=== PATIENT | female | born 1960 | race Caucasian/White ===

== ENCOUNTER 2019-09-17 21:05 | Emergency (ER) | payer BC, MEDICAID ==
[~2019-09-17] VITALS: Ht 160 cm; Wt 63.5 kg
[2019-09-17 21:05] VITALS: BP_SYST 112
[2019-09-17] MEDS ORDERED: SYN75 PO (21:21)
[2019-09-17] MEDS ORDERED: LISI-600 PO (21:21)
[2019-09-17] MEDS ORDERED: WELSR150 PO (21:22)
[2019-09-17] MEDS ORDERED: CARI350T27 PO (21:22)
[2019-09-17] MEDS ORDERED: SUCR1TAB78 PO (21:22)
[2019-09-17] MEDS ORDERED: GABA-529 PO (21:22)
[2019-09-17] MEDS ORDERED: PRO40 PO (21:22)
[2019-09-17] MEDS ORDERED: NACL 0.9% 1,000 ML IV ONE (21:44)
[2019-09-17 23:00] LABS: BASOPHILS # (AUTO) 0.2 K/uL (0.0-0.2); BASOPHILS % (AUTO) 1.6 % (0.0-2.0); EOSINOPHILS # (AUTO) 0.1 K/uL (0.0-0.4); EOSINOPHILS % (AUTO) 0.6 % (0.0-4.0); HEMATOCRIT 34.1 % (36-48); HEMOGLOBIN 11.4 g/dL (12.0-16.0); LYMPHOCYTES # (AUTO) 0.3 K/uL (1.0-5.5); LYMPHOCYTES % (AUTO) 3.1 % (20.5-51.5); MEAN CORPUSCULAR HEMOGLOBIN 33 pg (27-31); MEAN CORPUSCULAR HGB CONC 34 % (32-36); MEAN CORPUSCULAR VOLUME 99 fL (79.0-98.0); MONOCYTES # (AUTO) 0.7 K/uL (0.0-1.0); MONOCYTES % (AUTO) 6.8 % (1.7-9.3); NEUTROPHILS # (AUTO) 8.6 K/uL (1.8-7.7); NEUTROPHILS % (AUTO) 87.9 % (40.0-70.0); PLATELET COUNT (AUTO) 218 K/uL (130-430); RED BLOOD CELL COUNT(AUTO) 3.44 MIL/uL (4.2-6.2); RED CELL DISTRIBUTION WIDTH 13.5 % (9.0-15.0); WHITE BLOOD COUNT (AUTO) 9.8 K/uL (4.8-10.8)
[2019-09-17 23:04] LABS: INR 0.9 (0.8-1.2); PROTHROMBIN TIME 9.4 SECS (9.5-12.5)
[2019-09-17 23:12] LABS: ANION GAP 5 (5-15); CALCIUM 8.2 mg/dL (8.4-11.0); CHLORIDE 102 mmol/L (98-107); CREATININE 0.62 mg/dL (0.55-1.30); GLUCOSE 125 mg/dL (70-99); POTASSIUM 3.8 mmol/L (3.5-5.1); SODIUM SERUM 131 mmol/L (136-145); UREA NITROGEN, BLOOD 20 mg/dL (8-21)
[2019-09-17 23:13] LABS: GFR AFRICAN AMERICAN 128 mL/min (>90)
[2019-09-17 23:16] LABS: ALANINE AMINOTRANSFERASE 239 U/L (12-78); ALBUMIN 3.3 g/dL (3.4-4.8); ASPARTATE AMINOTRANSFERASE 203 U/L (10-37); TOTAL BILIRUBIN 0.3 mg/dL (0.0-1.0)
[2019-09-17 23:18] LABS: ALCOHOL, BLOOD < 3 mg/dL (<10)
[2019-09-17 23:22] LABS: BILIRUBIN,URINE NEGATIVE (NEGATIVE); BLOOD, URINE NEGATIVE (NEGATIVE); CLARITY/URINE SL CLOUDY (CLEAR); COLOR,URINE YELLOW (YELLOW); GLUCOSE,URINE NEGATIVE (NEGATIVE); KETONES,URINE NEGATIVE (NEGATIVE); LEUKOCYTE ESTERASE ,URINE 1+ (NEGATIVE); NITRITE, URINE NEGATIVE (NEGATIVE); PROTEIN URINE TRACE (NEGATIVE); UROBILINOGEN,URINE 0.2 (0.2-1.0)
[2019-09-17 23:46] LABS: BARBITURATE, URINE NEGATIVE (NEG <=200); BENZODIAZEPINE, URINE NEGATIVE (NEG <=150); CANNABINOID, URINE NEGATIVE (NEG <=50); COCAINE, URINE NEGATIVE (NEG <=150); METHAMPHETAMINES SCREEN,URINE POSITIVE (NEG <=500); OPIATE, URINE NEGATIVE (NEG <=100); PHENCYCLIDINE SCREEN,URINE NEGATIVE (NEG <=25); UR TRICYCLIC ANTIDEPRESSANTS NEGATIVE (NEG <=300); URINE AMPHETAMINE NEGATIVE (NEG <=500); URINE METHADONE NEGATIVE (NEG <=200); URINE OXYCODONE SCREEN NEGATIVE (NEG <=100); URINE PROPOXYPHENE SCREEN NEGATIVE (NEG <=300)
[2019-09-17 23:47] LABS: BACTERIA,URINE MODERATE /HPF (None Seen); RBC,URINE 0-3 /HPF (0-3)
[2019-09-18 00:30] VITALS: BP_SYST 110
[2019-09-18] MEDS ORDERED: NITROFURANTOIN MONOHYD/M-CRYST 100 MG CAPSULE PO ONE ×2 (00:32)
== END 2019-09-18 00:30 | disposition home or self-care (01) ==
LOC: SED 21:05
DX: R55 Syncope and collapse (principal); N39.0 Urinary tract infection, site not specified; R79.89 Other specified abnormal findings of blood chemistry; F15.10 Other stimulant abuse, uncomplicated; E07.9 Disorder of thyroid, unspecified; K21.9 Gastro-esophageal reflux disease without esophagitis; I10 Essential (primary) hypertension; Z79.899 Other long term (current) drug therapy; Z88.0 Allergy status to penicillin
CPT/HCPCS: 36415; 71045; 80053; 80307; 81000; 83605; 84484; 85025; 85610; 85730; 87040; 87086; 87186; 93005; 96360; 99285; G0482; J7030

== ENCOUNTER 2020-03-27 23:51 | Inpatient (IN) | payer BC, SELFPAY ==
[~2020-03-27] VITALS: Ht 160 cm; Wt 67.1 kg
[2020-03-27 23:51] VITALS: BP_SYST 82
[~2020-03-27 23:51] MED LIST: CARI350T27 PO; GABA-529 PO; LISI-600 PO; PRO40 PO; SUCR1TAB78 PO; SYN75 PO; WELSR150 PO
--- NOTE | 2020-03-27 23:51 | NUR ---
Patient to ER bed 06 to gown for evaluation. Side rails up.
--- NOTE | 2020-03-27 23:55 | NUR ---
PATIENT BROUGHT IN ALS FROM HOME COMPLAINING OF ACUTE CONSTANT SHARP RIGHT SIDED ABDOMINAL PAIN NON RADIATING TODAY WITH CONSTIPATION X 10 DAYS. PATIENT REPORTS THAT SHE WAS SEEN AT [facility] ON TUESDAY FOR ABDOMINAL AND REPORTS THAT SHE WAS DISCHARGED. PAIN 03/29. NO OTHER COMPLAINTS/INJURIES PER PATIENT OR NOTED. WILL CONTINUE TO MONITOR.
--- NOTE | 2020-03-27 23:59 | NUR ---
Medication reconciliation completed with information provided by PT. Any prior medication reconciliation on file was reviewed and corrected.
--- NOTE | 2020-03-28 00:01 | NUR ---
# 20 gauge angiocath placed to LAC. Use of asceptic technique. Opsite placed over site. Blood return noted. Blood AND CULTURES for lab drawn from site. Flushed with 10 cc of normal saline. No evidence of infiltration noted. Patient tolerated well.
--- NOTE | 2020-03-28 00:07 | NUR ---
ER DR. STEPHENSON AT THE BEDSIDE EVALUATING PT
[2020-03-28] MEDS ORDERED: NACL 0.9% 1,000 ML IV ONE ×2 (00:14→01:00)
[2020-03-28] MEDS ORDERED: ONDANSETRON HCL 4 MG/2 ML VIAL IVP ONE ×2 (00:15→04:49)
[2020-03-28] MEDS ORDERED: KETOROLAC TROMETHAMINE 30 MG VIAL IVP ONE (00:15)
--- NOTE | 2020-03-28 00:24 | NUR ---
PATIENT MEDICATED PER MD ORDERS. PATIENT TOLERATED WELL. WILL CONTINUE TO MONITOR
--- NOTE | 2020-03-28 00:34 | NUR ---
# 16 FR In and Out catheter with use of sterile technique. Immediate return of 70ml CLEAR YELLOW urine noted. Urine sample collected and sent to lab. Pt tolerated procedure WELL Patient unable to toilet self.
[2020-03-28 00:35] LABS: CALCIUM 8.9 mg/dL (8.4-11.0); CREATININE 1.72 mg/dL (0.55-1.30)
[2020-03-28 00:37] LABS: PROTHROMBIN TIME 10.1 SECS (9.5-12.5)
[2020-03-28 00:41] LABS: ALBUMIN 3.6 g/dL (3.4-4.8); TOTAL BILIRUBIN 0.5 mg/dL (0.0-1.0)
[2020-03-28 00:44] LABS: POTASSIUM 2.6 mmol/L (3.5-5.1)
[2020-03-28] MEDS ORDERED: KCL 20 mEq in NS 1000 mL 1,000 ML IV ONE (00:45)
[2020-03-28] MEDS ORDERED: MORPHINE 4 MG/ML INJ. SYRINGE IVP ONE (00:45)
[2020-03-28 00:47] LABS: BILIRUBIN,URINE 2+ (NEGATIVE); BLOOD, URINE NEGATIVE (NEGATIVE); CLARITY/URINE CLEAR (CLEAR); COLOR,URINE YELLOW (YELLOW); GLUCOSE,URINE NEGATIVE (NEGATIVE); KETONES,URINE 2+ (NEGATIVE); LEUKOCYTE ESTERASE ,URINE NEGATIVE (NEGATIVE); NITRITE, URINE NEGATIVE (NEGATIVE); PH,URINE 5.5 (5.0-8.0); PROTEIN URINE 2+ (NEGATIVE); UROBILINOGEN,URINE 0.2 (0.2-1.0)
[2020-03-28 00:49] LABS: MONOCYTES # (AUTO) 0.3 K/uL (0.0-1.0); RED BLOOD CELL COUNT(AUTO) 4.41 MIL/uL (4.2-6.2)
[2020-03-28 00:53] LABS: BASOPHILS # (AUTO) 0.1 K/uL (0.0-0.2); BASOPHILS % (AUTO) 0.6 % (0.0-2.0); EOSINOPHILS % (AUTO) 0.3 % (0.0-4.0); HEMOGLOBIN 14.7 g/dL (12.0-16.0); LYMPHOCYTES # (AUTO) 0.5 K/uL (1.0-5.5); LYMPHOCYTES % (AUTO) 4.8 % (20.5-51.5); MEAN CORPUSCULAR HEMOGLOBIN 33 pg (27-31); MEAN CORPUSCULAR HGB CONC 34 % (32-36); MEAN CORPUSCULAR VOLUME 97 fL (79.0-98.0); MONOCYTES % (AUTO) 3.7 % (1.7-9.3); NEUTROPHILS # (AUTO) 8.6 K/uL (1.8-7.7); NEUTROPHILS % (AUTO) 90.6 % (40.0-70.0); PLATELET COUNT (AUTO) 313 K/uL (130-430); WHITE BLOOD COUNT (AUTO) 9.5 K/uL (4.8-10.8)
[2020-03-28 00:55] LABS: BACTERIA,URINE FEW /HPF (None Seen); RBC,URINE 0-3 /HPF (0-3)
[2020-03-28] MEDS ORDERED: KCL 20 mEq in 100 mL (PREMIX) 100 ML IV ONE ×2 (01:00→01:12)
--- NOTE | 2020-03-28 01:15 | NUR ---
PATIENT OFF UNIT TO CT FOR CT OF ABDOMEN AND PELVIS.
--- NOTE | 2020-03-28 01:17 | NUR ---
PATIENT STATES SHE IS FULL CODE.
--- NOTE | 2020-03-28 01:31 | NUR ---
PATIENT RETURNED FROM CT SCAN. PATIENT VSS
--- NOTE | 2020-03-28 01:33 | NUR ---
PATIENT STATES PAIN 8/10 ON REASSESSMENT. REPORTS IMPROVEMENT IN PAIN AND WOULD NOT LIKE ANY MORE PAIN MEDICATION AT THIS TIME BECAUSE IT'S MANAGEABLE.
--- NOTE | 2020-03-28 02:08 | NUR ---
DR STEPHENSON SPEAKING TO STAT RAD REGARDING CRITICAL RESULTS.
[2020-03-28] MEDS ORDERED: LEVOFLOXACIN 500 MG/D5W 100 ML IV ONE (02:30)
--- NOTE | 2020-03-28 02:46 | NUR ---
LEVAQUIN 500 MG IVPB STARTED.
[2020-03-28] MEDS ORDERED: fentaNYL CITRATE/PF 100 MCG/2 ML AMP IVP ONE ×2 (03:00→04:49)
--- NOTE | 2020-03-28 03:04 | NUR ---
PATIENT STATES SHE IS HOLDING HER BREATH BECAUSE OF THE PAIN. PATIENT MEDICATED WTIH 50 MCG OF FENTANYL AND PLACED ON 2 L NASAL CANNULA. PATIENT TOLERATED WELL. O2 SATURATION NOW AT 99%
--- NOTE | 2020-03-28 03:37 | NUR ---
CALLED FOR TELE BED, SELVIN BRENNER TO CALL BACK
--- NOTE | 2020-03-28 03:39 | NUR ---
Patient will be admitted to care of DR MARLEY. Admitted to TELEMETRY unit. Will go to room 119 A. Complete and up to date summary report printed. SBAR report to be given at bedside with opportunity for questions.
[2020-03-28] MEDS ORDERED: KCL 40 mEq in 100 mL (PREMIX) 100 ML IV ONE (03:45)
[2020-03-28] MEDS ORDERED: ACETAMINOPHEN 650 MG SUPP.RECT RC PRN (03:45)
[2020-03-28] MEDS ORDERED: metroNIDAZOLE 500 mg/NS 100 ML IV ONE (03:45)
--- NOTE | 2020-03-28 03:47 | NUR ---
# 16 FR Jameson catheter with use of sterile technique. Immediate return of 150 cc CLEAR YELLOW urine noted. Bedside drainage bag placed below level of bladder. Urine sample collected and sent to lab. Pt tolerated procedure WELL.
--- NOTE | 2020-03-28 03:49 | NUR ---
Transfer to TELEMETRY via ACLS protocol. Licensed nurse present. IV present no signs or symptoms of infiltration.
--- NOTE | 2020-03-28 04:00 | NUR ---
ADMIT NOTE Received pt from ER to the floor with a diagnosis of small bowel obstruction. Admission process initiated. patient oriented to pain management, safety and call light-teach back done.
[2020-03-28 04:03] VITALS: BP_SYST 104
--- NOTE | 2020-03-28 04:45 | NUR ---
Patient to OR in stable condition with OR team. [facility] notified that patient has gone to surgery.
[2020-03-28] MEDS ORDERED: NS IRRIG SOLN 1000 ML IR ONE (04:49)
[2020-03-28] MEDS ORDERED: SEVOFLURANE 15 MIN GAS INH ONE (04:49)
[2020-03-28] MEDS ORDERED: MIDAZOLAM HCL 5 MG/5 ML VIAL IVP ONE (04:49)
[2020-03-28] MEDS ORDERED: SUCCINYLCHOLINE CHLORIDE 20 MG/ML(QUELICIN) IVP ONE (04:49)
[2020-03-28] MEDS ORDERED: LR 500 ML IV.SOLN IV ONE (04:49)
[2020-03-28] MEDS ORDERED: DEXAMETHASONE SOD PHOSPHATE 4 MG/ML VIAL IVP ONE (04:49)
[2020-03-28] MEDS ORDERED: NEOSTIGMINE METHYLSULFATE 1 MG/ML, 10 ML VIAL IVP ONE (04:49)
[2020-03-28] MEDS ORDERED: PHENYLEPHRINE HCL 10 MG/ML VIAL (NEOSYNEPHRINE) IV ONE (04:49)
[2020-03-28] MEDS ORDERED: ROCURONIUM BROMIDE 10 MG/ML (ZEMURON) IV ONE (04:49)
[2020-03-28] MEDS ORDERED: GLYCOPYRROLATE 0.2 MG/ML VIAL IJ ONE (04:49)
[2020-03-28] MEDS ORDERED: PROPOFOL 200MG/ 20ML VIAL (DIPRIVAN) IV ONE (04:49)
[2020-03-28] MEDS ORDERED: LR 1,000 ML IV SCH (05:50)
[2020-03-28] MEDS ORDERED: ePHEDrine sulfate 50 MG/ML VIAL IVP PRN (06:00)
[2020-03-28] MEDS ORDERED: MEPERIDINE HCL/PF 25 MG/ML DISP.SYRIN IVP PRN (06:00)
[2020-03-28] MEDS ORDERED: ONDANSETRON HCL 4 MG/2 ML VIAL IVP PRN (06:00)
[2020-03-28] MEDS: HYDROmorphone 1 MG INJ. 1 MG/ML AMPUL IVP PRN ×6 (06:48→20:21)
--- NOTE | 2020-03-28 07:00 | NUR ---
Patient still off unit at this time. Will endorse care to day shift RN.
[2020-03-28] MEDS ORDERED: HYDROmorphone 1 MG INJ. 1 MG/ML AMPUL ONE (07:06)
--- NOTE | 2020-03-28 07:30 | NUR ---
Routine Patient returned to unit in stable condition with NGT right nare, midline abdominal incision, and Jameson catheter draining shelbi urine. Patient stable at this time.
[2020-03-28 07:35] VITALS: BP_SYST 119
[2020-03-28] MEDS: LR 1,000 ML IV SCH ×3 (08:17→20:28)
[2020-03-28] MEDS ORDERED: PANTOPRAZOLE SODIUM 40 MG/VIAL (PROTONIX) IVP ONE (09:30)
[2020-03-28] MEDS ORDERED: IPRATROPIUM/ALBUTEROL SULFATE 3 ML AMPUL.NEB (DUONEB) INH ONE (09:45)
[2020-03-28 10:28] LABS: BASOPHILS % (AUTO) 0.7 % (0.0-2.0); EOSINOPHILS % (AUTO) 0.1 % (0.0-4.0); HEMATOCRIT 38.1 % (36-48); HEMOGLOBIN 12.9 g/dL (12.0-16.0); LYMPHOCYTES # (AUTO) 0.3 K/uL (1.0-5.5); LYMPHOCYTES % (AUTO) 4.2 % (20.5-51.5); MEAN CORPUSCULAR HEMOGLOBIN 33 pg (27-31); MEAN CORPUSCULAR HGB CONC 34 % (32-36); MEAN CORPUSCULAR VOLUME 98 fL (79.0-98.0); MONOCYTES # (AUTO) 0.1 K/uL (0.0-1.0); NEUTROPHILS # (AUTO) 5.9 K/uL (1.8-7.7); PLATELET COUNT (AUTO) 239 K/uL (130-430); RED BLOOD CELL COUNT(AUTO) 3.88 MIL/uL (4.2-6.2); RED CELL DISTRIBUTION WIDTH 12.9 % (9.0-15.0); WHITE BLOOD COUNT (AUTO) 6.4 K/uL (4.8-10.8)
[2020-03-28 10:38] LABS: CALCIUM 7.3 mg/dL (8.4-11.0); CREATININE 0.86 mg/dL (0.55-1.30); POTASSIUM 3.5 mmol/L (3.5-5.1)
[2020-03-28 10:41] LABS: PHOSPHORUS 5.1 mg/dL (2.7-4.5)
--- NOTE | 2020-03-28 12:00 | NUR ---
Routine Patient medicated for 7/10 abdominal pain. Patient stable at this time.
[2020-03-28 12:35] VITALS: BP_SYST 115
[2020-03-28] MEDS ORDERED: INSULIN REGULAR, HUMAN 100 UNITS/ML, 10 ML VIAL (humuLIN R) SUBCUT PRN (13:45)
[2020-03-28] MEDS ORDERED: *PPN PER PHARMACY XX PRN (13:45)
[2020-03-28] MEDS ORDERED: DEXTROSE 50% JECT 50 ML DISP.SYRIN IVP PRN (13:45)
[2020-03-28] MEDS: metroNIDAZOLE 500 mg/NS 100 ML IV SCH ×2 (14:42→21:39)
--- NOTE | 2020-03-28 14:43 | NUR ---
Routine Scheduled IV abx given per order. Patient stable at this time with no complaint of pain.
--- NOTE | 2020-03-28 16:03 | NUR ---
Routine Checked blood sugar: 115 mg/dl - no coverage required. Patient stable.
--- NOTE | 2020-03-28 16:17 | NUR ---
Routine Patient medicated for 7/10 abdominal pain. Patient stable.
[2020-03-28 16:18] VITALS: BP_SYST 128
--- NOTE | 2020-03-28 18:00 | NUR ---
Routine Patient stable throughout shift.
--- NOTE | 2020-03-28 18:55 | NUR ---
Routine Patient resting comfortably in bed. Emptied 60mls of sanguineous drainage from JARRETT drain.
--- NOTE | 2020-03-28 19:45 | NUR ---
INITIAL NOTE AT INITIAL ASSESSMENT, PATIENT IS RESTING IN BED, STABLE, NO SIGNS OF RESPIRATORY DISTRESS. PATIENT VERBALIZES NO PAIN. PLAN OF CARE FOR THE EVENING IS COMMUNICATED WITH THE PATIENT. PATIENT DEMONSTRATES CORRECT USAGE OF CALL LIGHT AT THIS TIME. BED IS LOCKED, ALARMED, AND AT THE LOWEST LEVEL. FALL, SAFETY, AND RESPIRATORY PRECAUTIONS WILL BE TAKEN THROUGHOUT THE SHIFT.
[2020-03-28 19:55] VITALS: BP_SYST 134
[2020-03-28] MEDS: LEVOFLOXACIN 500 MG/D5W 100 ML IV SCH (20:20)
--- NOTE | 2020-03-28 20:20 | NUR ---
PAIN NOTE PRN MEDICATION IS GIVEN AT THIS TIME FOR PATIENTS COMPLAINT OF SEVERE PAIN. WILL REASSESS IF PRN MEDICATION GIVEN WAS EFFECTIVE. CALL LIGHT PLACED WITHIN REACH. BED IS LOCKED, ALARMED, AND AT THE LOWEST LEVEL.
[2020-03-28] MEDS: PANTOPRAZOLE SODIUM 40 MG/VIAL (PROTONIX) IVP SCH (20:21)
--- NOTE | 2020-03-28 21:30 | NUR ---
INCENTIVE SPIROMETER TEACHING PATIENT SUCCESSFULLY DEMONSTRATES CORRECT USAGE OF INCENTIVE SPIROMETER AT HIS TIME. SHE IS AVERAGING 500 ML, PATIENT VERBALIZES EXPERIENCING SOME ABDOMINAL PAIN WHEN USING THE INCENTIVE SPIROMETER. PATENT VERBALIZES KNOWING TO PRACTICE 10 TIMES AN HOUR WHILE AWAKE. AT THIS TIME, PATIENT IS ON 2L OXYGEN SUPPLEMENTATION, WITH OXYGEN SATURATION AT 97%. WILL CONTINUE TO ENCOURAGE USE OF INCENTIVE SPIROMETER THROUGHOUT THE SHIFT.
--- NOTE | 2020-03-28 22:20 | NUR ---
NOTE SCHEDULED MEDICATIONS GIVEN AT THIS TIME, PATIENT TOLERATED WELL. CALL LIGHT IS PLACED WITHIN REACH. BED IS LOCKED, ALARMED, AND AT THE LOWEST LEVEL.
--- NOTE | 2020-03-29 00:20 | NUR ---
NOTE PATIENT IS SLEEPING, STABLE, NO SIGNS OF RESPIRATORY DISTRESS. CALL LIGHT IS WITHIN REACH. BED IS LOCKED, ALARMED, AND AT THE LOWEST LEVEL.
[2020-03-29] MEDS: ONDANSETRON HCL 4 MG/2 ML VIAL IVP PRN ×2 (01:38→05:45)
[2020-03-29] MEDS: HYDROmorphone 1 MG INJ. 1 MG/ML AMPUL IVP PRN ×5 (01:39→18:36)
[2020-03-29 02:11] VITALS: BP_SYST 134
--- NOTE | 2020-03-29 02:40 | NUR ---
HYGIENE CARE NOTE HYGIENE CARE IS PROVIDED AT THIS TIME, FRESH LINENS PROVIDED, AND PATIENT IS REPOSITIONED FOR COMFORT. PATIENT TOLERATED WELL. CALL LIGHT PLACED WITHIN REACH. BED IS LOCKED, ALARMED, AND AT THE LOWEST LEVEL.
--- NOTE | 2020-03-29 04:40 | NUR ---
NOTE PATIENT IS SLEEPING, STABLE, NO SIGNS OF RESPIRATORY DISTRESS. CALL LIGHT IS WITHIN REACH. BED IS LOCKED, ALARMED, AND AT THE LOWEST LEVEL.
[2020-03-29] MEDS: metroNIDAZOLE 500 mg/NS 100 ML IV SCH ×3 (05:42→21:11)
[2020-03-29] MEDS: LR 1,000 ML IV SCH ×4 (05:44→22:13)
--- NOTE | 2020-03-29 06:50 | NUR ---
CLOSING NOTE PATIENT VERBALIZED THAT PRN MEDICATION GIVEN TO HER THROUGHOUT THE NIGHT WAS EFFECTIVE FOR HER PAIN. SURGICAL DRESSING IS STILL CLEAN, DRY, AND INTACT. AT THIS TIME, PATIENT IS RESTING IN BED, STABLE, NO SIGNS OF RESPIRATORY DISTRESS. CALL LIGHT IS WITHIN REACH. BED IS LOCKED, ALARMED, AND AT THE LOWEST LEVEL. FALL, SAFETY, AND RESPIRATORY PRECAUTIONS HAVE BEEN TAKEN THROUGHOUT THE SHIFT. WILL CONTINUE TO MONITOR UNTIL SHIFT REPORT IS GIVEN AT BEDSIDE TO AM NURSE.
[2020-03-29 07:17] LABS: BASOPHILS % (AUTO) 0.1 % (0.0-2.0); EOSINOPHILS % (AUTO) 0.4 % (0.0-4.0); HEMATOCRIT 35.3 % (36-48); HEMOGLOBIN 11.7 g/dL (12.0-16.0); LYMPHOCYTES # (AUTO) 0.3 K/uL (1.0-5.5); LYMPHOCYTES % (AUTO) 3.4 % (20.5-51.5); MEAN CORPUSCULAR HEMOGLOBIN 33 pg (27-31); MEAN CORPUSCULAR HGB CONC 33 % (32-36); MEAN CORPUSCULAR VOLUME 100 fL (79.0-98.0); MONOCYTES # (AUTO) 0.3 K/uL (0.0-1.0); MONOCYTES % (AUTO) 3.1 % (1.7-9.3); NEUTROPHILS # (AUTO) 8.7 K/uL (1.8-7.7); PLATELET COUNT (AUTO) 229 K/uL (130-430); RED BLOOD CELL COUNT(AUTO) 3.55 MIL/uL (4.2-6.2); RED CELL DISTRIBUTION WIDTH 13.2 % (9.0-15.0); WHITE BLOOD COUNT (AUTO) 9.4 K/uL (4.8-10.8)
[2020-03-29 07:28] LABS: ALBUMIN 2.1 g/dL (3.4-4.8); CALCIUM 7.7 mg/dL (8.4-11.0); CREATININE 0.69 mg/dL (0.55-1.30); POTASSIUM 4.2 mmol/L (3.5-5.1); TOTAL BILIRUBIN 0.2 mg/dL (0.0-1.0)
[2020-03-29 07:50] VITALS: BP_SYST 159
[2020-03-29 07:50] LABS: PHOSPHORUS 2.4 mg/dL (2.7-4.5)
[2020-03-29] MEDS: PANTOPRAZOLE SODIUM 40 MG/VIAL (PROTONIX) IVP SCH ×2 (08:48→20:27)
--- NOTE | 2020-03-29 09:13 | NUR ---
Nutrition Update Eber Scale 18 noted. Pt admitted for acute abd. Diet: NPO BMI: 26 kg/m2 RD to follow per nutrition care standards.
[2020-03-29] MEDS: SODIUM PHOSPHATE,MONO-DIBASIC 133 ML ENEMA RC SCH ×3 (09:43→20:27)
[2020-03-29 12:00] VITALS: BP_SYST 149
[2020-03-29] MEDS ORDERED: NA PHOS 15 MM in NS 250 ML IV ONE (13:00)
--- NOTE | 2020-03-29 15:35 | NUR ---
Dietitian Recommendations * Recommend PPN D20%, AA8.5% at 100 ml/hr (goal rate), IL20% at 10 ml/hr via peripheral line Provides: 1704 kcal/day, 102 gm protein/day, 2640 ml total volume/day, and GIR: 2.5 gm CHO/kg/min Meets: 85% of lower end of estimated caloric needs and 101% of upper end of estimated protein needs LP, RD Please refer to Nutrition Assessment for details. Addendum: 03/29/20 at [address] Amended: Links added.
[2020-03-29 16:00] VITALS: BP_SYST 115
--- NOTE | 2020-03-29 18:37 | NUR ---
closing notes, pt has been stable the whole shift, vitals wnl. no fever, given 3x dilaudid today for s/p surgical pain. pt given fleets enema, pt had 1x bm this afternoon, patient stood up and sitter on the chair for 1 hour and then back to bed. pt denies passing gas. zamzam out put is 35 cc . pt to start ppn and lipids tonight. will endorse to night nurse.
--- NOTE | 2020-03-29 19:15 | NUR ---
OPENING NOTE PATIENT AWAKE, AOX4. NO SIGNS OF RESPIRATORY DISTRESS NOTED. ON 1L OF OXYGEN VIA NASAL CANULA, TOLERATING WELL, 02 SATURATION OF 95%. HOB SLIGHTLY RAISED. DENIES PAIN AND DISCOMFORT AT THIS TIME. IVF INFUSING WELL, PATENCY NOTED. SCD'S OPERATING WELL. MICHELE CATHETER DRAINING BY GRAVITY.CALL LIGHT WITHIN REACH. PATIENT WAS EDUCATED TO USE CALL LIGHT WHEN ASSISTANCE IS NEEDED. PATIENT ABLE TO VERBALIZED UNDERSTANDING. BED LOCKED AND IN LOWEST POSITION. SAFETY PRECAUTIONS IN PLACE. WILL CONTINUE TO MONITOR PATIENT.
[2020-03-29 20:00] VITALS: BP_SYST 140
[2020-03-29] MEDS: LEVOFLOXACIN 500 MG/D5W 100 ML IV SCH (20:25)
[2020-03-29] MEDS ORDERED: SODIUM ACETATE IV SCH ×9 (21:00)
[2020-03-29] MEDS ORDERED: TPN PERIPHERAL IV SCH ×9 (21:00)
[2020-03-29] MEDS ORDERED: POTASSIUM CHLORIDE IV SCH ×9 (21:00)
[2020-03-29] MEDS ORDERED: [UNRECOGNIZED DRUG - OTHER] IV SCH ×9 (21:00)
[2020-03-29] MEDS: FAT EMULSIONS 250 ML IV SCH (21:09)
--- NOTE | 2020-03-29 21:11 | NUR ---
MED PASS/ TPN HUNG/BS 88 DUE MEDICATION GIVEN AT THIS TIME AND NEW TPN HUNG. PATIENT WAS EDUCATED ON PURPOSE, SIDE EFFECT AND BENEFITS. OF MEDICATION THAT WAS TAKEN FOR ITS PURPOSE, SIDE EFFECT AND BENEFITS, PATIENT ABLE TO VERBALIZED UNDERSTANDING. BS WAS 88, NO COVERAGE NEEDED AT THIS TIME. CALL LIGHT WITHIN REACH. SAFETY PRECAUTIONS IN PLACE. WILL CONTINUE TO MONITOR PATIENT
[2020-03-29] MEDS: HYDROmorphone 2 MG/ML VIAL IVP PRN (21:48)
[2020-03-30] VITALS: BP_SYST 138
--- NOTE | 2020-03-30 00:57 | NUR ---
BS 104/ ASSISTED TO BSC BS 104, NO COVERAGE NEEDED. NEEDS ATTENDED. ASSISTED TO BSC WITH HELP OF CENTRIFUGAL SEPARATOR AND SAFELY BACK TO BED. BOWEL MOVEMENT IS NOTED. IVF, TPN INFUSING WELL. CALL LIGHT WITHIN REACH. SAFETY PRECAUTIONS IN PLACE. WILL CONTINUE TO MONITOR PATIENT
--- NOTE | 2020-03-30 02:08 | NUR ---
RN ROUNDS PATIENT ASLEEP AT THIS TIME. NO SIGNS OF RESPIRATORY DISTRESS AND DISCOMFORT NOTED. BREATHING EVEN AND UNLABORED. ON 1L OF OXYGEN VIA NASAL CANULA, TOLERATING WELL. MICHELE CATHETER DRAINING WELL. IVF INFUSING WELL. CALL LIGHT WITHIN REACH. SAFETY PRECAUTIONS IN PLACE. WILL CONTINUE TO MONITOR PATIENT
[2020-03-30] MEDS: HYDROmorphone 1 MG INJ. 1 MG/ML AMPUL IVP PRN ×4 (02:49→16:01)
[2020-03-30] MEDS: metroNIDAZOLE 500 mg/NS 100 ML IV SCH ×3 (05:24→21:42)
[2020-03-30] MEDS: LR 1,000 ML IV SCH ×3 (05:29→12:07)
--- NOTE | 2020-03-30 06:55 | NUR ---
CLOSING NOTE/ BS 116 PATIENT AWAKE, WATCHING TV. NO SIGNS OF RESPIRATORY DISTRESS AND DISCOMFORT NOTED. BREATHING EVEN AND UNLABORED. ON 1L OF OXYGEN VIA NASAL CANULA, TOLERATING WELL. IVF, TPN, AND LIPIDS INFUSING WELL. MICHELE CATHETER DRAINING WELL. JARRETT DRAIN, NO DRAINAGE NOTED. CALL LIGHT WITHIN REACH. BED LOCKED AND IN LOWEST POSITION. BED ALARM ON. SIDE RAILS UP. SAFETY PRECAUTION IN PLACE. ALL NEEDS MET THROUGHOUT THE SHIFT. WILL CONTINUE TO MONITOR PATIENT UNTIL ENDORSE TO ONCOMING SHIFT NURSE FOR CONTINUITY OF CARE.
[2020-03-30 07:29] LABS: BASOPHILS % (AUTO) 0.3 % (0.0-2.0); EOSINOPHILS # (AUTO) 0.1 K/uL (0.0-0.4); EOSINOPHILS % (AUTO) 1.5 % (0.0-4.0); HEMATOCRIT 30.3 % (36-48); HEMOGLOBIN 10.3 g/dL (12.0-16.0); LYMPHOCYTES # (AUTO) 0.6 K/uL (1.0-5.5); MEAN CORPUSCULAR HEMOGLOBIN 34 pg (27-31); MEAN CORPUSCULAR HGB CONC 34 % (32-36); MEAN CORPUSCULAR VOLUME 99 fL (79.0-98.0); MONOCYTES # (AUTO) 0.3 K/uL (0.0-1.0); MONOCYTES % (AUTO) 3.1 % (1.7-9.3); NEUTROPHILS # (AUTO) 8.5 K/uL (1.8-7.7); NEUTROPHILS % (AUTO) 89.1 % (40.0-70.0); PLATELET COUNT (AUTO) 226 K/uL (130-430); RED BLOOD CELL COUNT(AUTO) 3.07 MIL/uL (4.2-6.2); RED CELL DISTRIBUTION WIDTH 13.5 % (9.0-15.0); WHITE BLOOD COUNT (AUTO) 9.5 K/uL (4.8-10.8)
[2020-03-30 07:30] VITALS: BP_SYST 146
[2020-03-30 08:02] LABS: ALBUMIN 1.8 g/dL (3.4-4.8); CALCIUM 7.7 mg/dL (8.4-11.0); CREATININE 0.36 mg/dL (0.55-1.30); PHOSPHORUS 2.7 mg/dL (2.7-4.5); TOTAL BILIRUBIN 0.2 mg/dL (0.0-1.0)
[2020-03-30] MEDS: PANTOPRAZOLE SODIUM 40 MG/VIAL (PROTONIX) IVP SCH ×2 (08:08→20:59)
[2020-03-30] MEDS: SODIUM PHOSPHATE,MONO-DIBASIC 133 ML ENEMA RC SCH ×3 (08:10→20:59)
[2020-03-30 08:15] LABS: POTASSIUM 2.7 mmol/L (3.5-5.1)
--- NOTE | 2020-03-30 08:15 | NUR ---
pt given fleets enema as ordered, pt encouraged to call for assist, call light in reach.
[2020-03-30] MEDS ORDERED: POTASSIUM CHLORIDE 40 MEQ in NS 250 ML IV ONE (10:00)
[2020-03-30 12:35] VITALS: BP_SYST 151
[2020-03-30] MEDS ORDERED: POTASSIUM CHLORIDE 40 MEQ, LIDOCAINE JECT 2% PF 100 MG 50 MG in NS 250 ML IV ONE (15:00)
[2020-03-30] MEDS: IPRATROPIUM/ALBUTEROL SULFATE 3 ML AMPUL.NEB (DUONEB) INH PRN ×2 (15:50→20:59)
[2020-03-30] MEDS ORDERED: NALOXONE HCL 0.4 MG/ML AMP (NARCAN) IVP PRN (16:00)
[2020-03-30 16:25] VITALS: BP_SYST 157
[2020-03-30] MEDS: HYDROcodone/ACETAMIN 5-325 MG TAB (NORCO/ VICODIN) PO PRN ×2 (18:23→22:41)
[2020-03-30 19:00] VITALS: BP_SYST 142
--- NOTE | 2020-03-30 19:15 | NUR ---
change of shift.pt.presents quiescent affect;calm,resting.pt.presents iv access x3;iv fluids;maintanence,tpn/lipids infusing.\ pt.presents s/p surgery.pt.presents abdomen incisions;intact;approximating.pt.presents j-orona;location;rt.lower quadrant abdomen.intact;patent. pt.utilizing the bsc.pt.presents s/p foster cath d/c.pt.presents mictrition status.pt.presents scd's compression stockings.general status stable.respiratory status;o2 therapy administered via nasal cannulae@the rate:2l/min.call light/telephone w/in reach if the pt.
--- NOTE | 2020-03-30 19:46 | NUR ---
NOTES: PT HAS BEEN STABLE THE WHOLE SHIFT, NO FEVER, VITALS WITH IN PATIENTS NORMAL LIMITS, PT REMAINED ON O2 1LI, CHECKED IF PT CAN TOLERATE NO O2 BUT PT DESATURATED TO 87% SO PT PLACE BACK ON 02 1L PER NC, PT ALSO HAD X1 BREATHING TREATMENT DUE TO SOB, PT GIVEN PAIN MEDICATIONS DILAUDID AND NORCO WITH GOOD PAIN RELIEF, PT'S LIPID AND PPN ONGOING, LR RATE WAS REDUCED BY DR MARLEY, 2X K RIDER WAS GIVEN TO DAY. ALL MED OFFERED AND TAKEN BY PT, PT HAD X2 SMALL BM AFTER FLEETS ENEMA, MICHELE WAS DISCONTINUE AND PT TOLERATED PROCEDURE WELL. ENDORSED TO NIGHT NURSE JENI.
--- NOTE | 2020-03-30 20:00 | NUR ---
pt.assesed.v/s assessed values w/in normal limits.pt.inquired when the pain medication;norco is due;i have apprised the pt.that the pain medication is due@2030p.i have apprised the pt.that snacks/beverages are available w/in the shift.pt.requested ice chips.i have provided the ice chips.i have assessed the surgical incisions.intact;approximating absent drainage.iv access x2 intact;patent iv fluids,tpn/lipids infusing.pt. capable to reposition self.i have inspected the bsc;clean.w/in access of the pt.general status stable;respiratory status stable:o2- sat%=94%.call light/telephone placed w/in access of the pt.i have assessed the blood glucose;value;137mg/dl.i have apprised the pt.of the blood glucose value.
[2020-03-30] MEDS: LEVOFLOXACIN 500 MG/D5W 100 ML IV SCH (20:59)
[2020-03-30] MEDS ORDERED: TPN PERIPHERAL IV SCH ×9 (21:00)
[2020-03-30] MEDS ORDERED: SODIUM CHLORIDE IV SCH ×9 (21:00)
[2020-03-30] MEDS ORDERED: [UNRECOGNIZED DRUG - OTHER] IV SCH ×9 (21:00)
[2020-03-30] MEDS ORDERED: POTASSIUM CHLORIDE IV SCH ×9 (21:00)
--- NOTE | 2020-03-30 21:00 | NUR ---
2100pmedications administered/tpn/lipids reviewed administered per protocol;2nd co-sign.tubing changed. Addendum: 03/31/20 at 0312 by Austin Mcgarry RN levaquin;abx ivpb administered.
[2020-03-30] MEDS: FAT EMULSIONS 250 ML IV SCH (21:16)
--- NOTE | 2020-03-30 22:00 | NUR ---
pt.assessed.pt.requested assistance to the bsc.i have assisted the pt.to the bsc.i have assisted the pt's return to bed.pt.repositioned.iv access x3 intact;patent iv fluids,tpn/lipids infusing.no requests posited@this hour.general status stable.respiratory status stable;unlabored;shallow depth.02-sat%=94%.call light/telephone placed w/in access of the pt.
--- NOTE | 2020-03-30 22:30 | NUR ---
pt.requested medication pain.i have administered norco:5/325mg po x2 tabs.to assess the efficacy of the pain medication per pain mgx protocol.pt.requested cup of ice.i have provided the cup of ice.
[2020-03-31] VITALS: BP_SYST 135
--- NOTE | 2020-03-31 | NUR ---
pt.assessed.v/s assessed values w/in normal limits.no c/o pain,nausea.iv fluids,tpn/lipids infusing.i have attended to the j-orona.measured/cleaned. pt.requested ice chips.i have provided the ice chips.general status stable.respiratory status stable;unlabored.pt.capable to reposition self.call light/telephone placed w/in access of the pt.
--- NOTE | 2020-03-31 02:00 | NUR ---
pt.assessed.pt.requested assistance to the bsc.pt.assisted to the bsc.i assisted the pt's return to bed.pt.repositioned.i have assessed the blood glucose value;133mg/dl.i have apprised the pt.of the blood glucose value;general status stable.respiratory status stable;unlabored.call light/telephone placed w/in access of the pt.
--- NOTE | 2020-03-31 02:30 | NUR ---
pt.requested medication;pain.i have administered norco;5/325mg po x2 tabs.to assess the efficacy of the pain medication per pain mgx protocol.pt.requested cup of ice/water.i have provided the water.
[2020-03-31] MEDS: HYDROcodone/ACETAMIN 5-325 MG TAB (NORCO/ VICODIN) PO PRN ×4 (02:34→23:27)
--- NOTE | 2020-03-31 04:00 | NUR ---
pt.assessed.pt.presents quiescent affect;calm,somnolent.iv access x3 intact;patent iv fluids,tpn/lipids infusing.pt.capable to reposition self.general status stable.respiratory status stable;unlabored:02-sat%=94%.call light/telephone w/in rech of the pt.
[2020-03-31] MEDS: metroNIDAZOLE 500 mg/NS 100 ML IV SCH ×3 (05:30→21:24)
--- NOTE | 2020-03-31 06:07 | NUR ---
pt.assessed.pt.presents quiescent affect;calm,resting.no c/o pain,nausea.iv access x3 intact;patent iv fluids,tpn/lipids infusing.pt.requests ice chips.provided.pt.capable to reposition self.general status stable.respiratory status stable.call light/telephone placed w/in access of the pt.
[2020-03-31 07:02] LABS: BASOPHILS % (AUTO) 0.3 % (0.0-2.0); EOSINOPHILS # (AUTO) 0.1 K/uL (0.0-0.4); EOSINOPHILS % (AUTO) 1.2 % (0.0-4.0); HEMATOCRIT 31.6 % (36-48); HEMOGLOBIN 10.8 g/dL (12.0-16.0); LYMPHOCYTES # (AUTO) 0.6 K/uL (1.0-5.5); MEAN CORPUSCULAR HEMOGLOBIN 33 pg (27-31); MEAN CORPUSCULAR HGB CONC 34 % (32-36); MEAN CORPUSCULAR VOLUME 97 fL (79.0-98.0); MONOCYTES # (AUTO) 0.5 K/uL (0.0-1.0); MONOCYTES % (AUTO) 4.8 % (1.7-9.3); NEUTROPHILS # (AUTO) 8.7 K/uL (1.8-7.7); NEUTROPHILS % (AUTO) 87.7 % (40.0-70.0); PLATELET COUNT (AUTO) 247 K/uL (130-430); RED BLOOD CELL COUNT(AUTO) 3.24 MIL/uL (4.2-6.2); RED CELL DISTRIBUTION WIDTH 13.4 % (9.0-15.0); WHITE BLOOD COUNT (AUTO) 9.9 K/uL (4.8-10.8)
[2020-03-31 07:10] LABS: ALBUMIN 1.9 g/dL (3.4-4.8); CALCIUM 7.9 mg/dL (8.4-11.0); CREATININE 0.37 mg/dL (0.55-1.30); PHOSPHORUS 3.3 mg/dL (2.7-4.5); TOTAL BILIRUBIN 0.3 mg/dL (0.0-1.0)
--- NOTE | 2020-03-31 07:25 | NUR ---
OPENING NOTE Patient resting in the bed. No acute distress. On O2 2L/min via NC. Skin warm and dry to touch. IV intact to LFA and right wrist, no redness, no swelling, patent. On TPN at 42ml/hr, lipid at 5ml/hr, and LR at 50ml/hr, infusing well. Discussed the safety issue, use call light when needs help, and plan of care, verbally understanding. Safety measure maintained. Call light within reached. Bed locked in low position, side rails up, bed alarm on. Will continue to monitor.
[2020-03-31 08:00] VITALS: BP_SYST 158
[2020-03-31] MEDS: SODIUM PHOSPHATE,MONO-DIBASIC 133 ML ENEMA RC SCH ×3 (08:24→21:00)
[2020-03-31] MEDS: PANTOPRAZOLE SODIUM 40 MG/VIAL (PROTONIX) IVP SCH ×2 (08:24→21:12)
[2020-03-31 08:30] LABS: POTASSIUM 2.8 mmol/L (3.5-5.1)
--- NOTE | 2020-03-31 08:38 | NUR ---
SEEN AND EXAMINED BY IGO FRAGA.
--- NOTE | 2020-03-31 08:54 | NUR ---
HIGH ALERT NOTE: Called Dr. RIOS back at identified within the medical roster to verify physician authenticity.
[2020-03-31] MEDS: IPRATROPIUM/ALBUTEROL SULFATE 3 ML AMPUL.NEB (DUONEB) INH PRN ×2 (09:04→15:35)
[2020-03-31] MEDS ORDERED: POTASSIUM CHLORIDE 40 MEQ in NS 250 ML IV ONE (10:00)
--- NOTE | 2020-03-31 10:45 | NUR ---
INCENTIVE SPIROMETRY Instructed and educated patient to use incentive spirometry, verbally understanding. Able to demonstrated back with 500ml. No acute distress. Continue on O2 2L/min via NC. Safety measure maintained. Call light within reached/ Continue to monitor.
[2020-03-31] MEDS: LR 1,000 ML IV SCH ×2 (11:38→22:54)
[2020-03-31 12:00] VITALS: BP_SYST 153
--- NOTE | 2020-03-31 12:05 | NUR ---
IV RE-INSERTION: Complaining of pain to IV site. Restarted on RFA, gauge 20 with good blood return. Flushed with 5 ml of NS. Successful after 1 attempt. Resumed current IVF of LR and regulated at 50ml/hr. Will observe for any signs of infiltration.
--- NOTE | 2020-03-31 13:12 | NUR ---
NORCO GIVEN Patient c/o right abdomen pain 12/27. [place] 5/325mg 2 tab PO given as ordered. Patient resting in the bed. No acute distress. Continue on O2 2L/min via NC. Safety measure maintained. Call light within reached. Bed locked in low position, side rails up, bed alarm on. Continue to monitor.
[2020-03-31] MEDS ORDERED: POTASSIUM CHLORIDE 40 MEQ, LIDOCAINE JECT 2% PF 100 MG 50 MG in NS 250 ML IV ONE (14:15)
--- NOTE | 2020-03-31 14:25 | NUR ---
FN=[id number] No insulin coverage needed per sliding scale. Patient resting in the bed. No acute distress. Continue on O2 2L/min via NC. Safety measure maintained. Call light within reached. Continue to monitor.
[2020-03-31] MEDS ORDERED: LACTOBACILLUS RHAMNOSUS GG 1 CAP CAPSULE PO ONE (14:30)
[2020-03-31 16:00] VITALS: BP_SYST 159
--- NOTE | 2020-03-31 17:18 | NUR ---
SEEN AND EXAMINED BY DR. MARLEY [facility].
--- NOTE | 2020-03-31 18:52 | NUR ---
CLOSING NOTE Patient resting in the bed. No acute distress. Continue on O2 2L/min via NC. Skin warm and dry to touch. IV intact to LFA and RFA, no redness, no swelling, patent. IVF and lipid, infusing well. Abdomen incision intact with mara, no drainage, no bleeding, no odor. JARRETT drain intact to right abdomen. All needs met. Safety measure maintained. Call light within reached. Bed locked in low position, side rails up, bed alarm on. Will endorse to night nurse.
[2020-03-31 19:45] VITALS: BP_SYST 144
--- NOTE | 2020-03-31 20:06 | NUR ---
PAGED I PAGED DR. MARLEY I SPOKE WITH SHAWANDA
--- NOTE | 2020-03-31 20:15 | NUR ---
HIGH ALERT NOTE: Called Dr. MARLEY back at PHONE NUMBER identified within the medical roster to verify physician authenticity REGARDING HIGH ALERT MEDICATION TPN/ LIPDS.
[2020-03-31] MEDS ORDERED: [UNRECOGNIZED DRUG - OTHER] IV SCH ×10 (21:00)
[2020-03-31] MEDS ORDERED: TPN PERIPHERAL IV SCH ×10 (21:00)
[2020-03-31] MEDS ORDERED: POTASSIUM CHLORIDE IV SCH ×10 (21:00)
[2020-03-31] MEDS ORDERED: SODIUM CHLORIDE IV SCH ×10 (21:00)
[2020-03-31] MEDS: HYDROmorphone 1 MG INJ. 1 MG/ML AMPUL IVP PRN (21:12)
[2020-03-31] MEDS: POTASSIUM CHLORIDE 20 MEQ TAB.PRT.SR PO SCH (21:12)
[2020-03-31] MEDS: LEVOFLOXACIN 500 MG/D5W 100 ML IV SCH (21:39)
--- NOTE | 2020-03-31 21:45 | NUR ---
INCENTIVE SPIROMETER TEACHING PATIENT SUCCESSFULLY DEMONSTRATES CORRECT USAGE OF INCENTIVE SPIROMETER AT HIS TIME. PATIENT VERBALIZES EXPERIENCING SOME ABDOMINAL PAIN WHEN USING THE INCENTIVE SPIROMETER. PATIENT VERBALIZES KNOWING TO PRACTICE 10 TIMES AN HOUR WHILE AWAKE. AT THIS TIME, PATIENT IS ON 2L OXYGEN SUPPLEMENTATION, WITH OXYGEN SATURATION AT 96%. WILL CONTINUE TO ENCOURAGE USE OF INCENTIVE SPIROMETER.
[2020-03-31] MEDS: LACTOBACILLUS RHAMNOSUS GG 1 CAP CAPSULE PO SCH (21:49)
[2020-04-01] VITALS: BP_SYST 155
[2020-04-01] MEDS: metroNIDAZOLE 500 mg/NS 100 ML IV SCH ×3 (06:07→21:45)
[2020-04-01] MEDS: HYDROcodone/ACETAMIN 5-325 MG TAB (NORCO/ VICODIN) PO PRN ×4 (06:08→23:52)
--- NOTE | 2020-04-01 06:10 | NUR ---
CLOSING NOTE PATIENT WAS ABLE TO USE BEDPAN WITH ONLY SOME ASSIST NEEDED DURING THE NIGHT. PRN MEDICATION GIVEN FOR PAIN THROUGHOUT THE NIGHT WAS EFFECTIVE FOR PATIENT'S PAIN EACH TIME IT WAS ASSESSED. PATIENT SLEPT WELL THROUGHOUT THE SHIFT. AT THIS TIME, PATIENT IS RESTING IN BED, STABLE, NO SIGNS OF RESPIRATORY DISTRESS. CALL LIGHT IS WITHIN REACH. BED IS LOCKED, ALARMED, AND AT THE LOWEST LEVEL. FALL, SAFETY, AND RESPIRATORY PRECAUTIONS HAVE BEEN TAKEN THROUGHOUT THE SHIFT. WILL CONTINUE TO MONITOR UNTIL SHIFT REPORT IS GIVEN AT BEDSIDE TO AM NURSE.
[2020-04-01 06:52] LABS: BASOPHILS % (AUTO) 0.2 % (0.0-2.0); EOSINOPHILS # (AUTO) 0.1 K/uL (0.0-0.4); EOSINOPHILS % (AUTO) 1.1 % (0.0-4.0); HEMATOCRIT 32.3 % (36-48); LYMPHOCYTES # (AUTO) 0.8 K/uL (1.0-5.5); LYMPHOCYTES % (AUTO) 6.7 % (20.5-51.5); MEAN CORPUSCULAR HEMOGLOBIN 33 pg (27-31); MEAN CORPUSCULAR HGB CONC 34 % (32-36); MEAN CORPUSCULAR VOLUME 97 fL (79.0-98.0); MONOCYTES # (AUTO) 1.1 K/uL (0.0-1.0); MONOCYTES % (AUTO) 9.5 % (1.7-9.3); NEUTROPHILS # (AUTO) 9.5 K/uL (1.8-7.7); NEUTROPHILS % (AUTO) 82.5 % (40.0-70.0); PLATELET COUNT (AUTO) 286 K/uL (130-430); RED BLOOD CELL COUNT(AUTO) 3.34 MIL/uL (4.2-6.2); RED CELL DISTRIBUTION WIDTH 13.4 % (9.0-15.0); WHITE BLOOD COUNT (AUTO) 11.5 K/uL (4.8-10.8)
[2020-04-01 07:17] LABS: CALCIUM 8.6 mg/dL (8.4-11.0); CREATININE 0.32 mg/dL (0.55-1.30); PHOSPHORUS 3.8 mg/dL (2.7-4.5); POTASSIUM 3.6 mmol/L (3.5-5.1); TOTAL BILIRUBIN 0.4 mg/dL (0.0-1.0)
--- NOTE | 2020-04-01 07:30 | NUR ---
OPENING NOTE Patient resting in the bed. No acute distress. On O2 2L/min via NC. Skin warm and dry to touch. IV intact to LFA and RFA, no redness, no swelling, patent. On LR at 40ml/hr, infusing well. Discussed the safety issue, use call light when needs help, and plan of care, verbally understanding. Safety measure maintained. Call light within reached. Bed locked in low position, side rails up. Refused bed alarm, risk and benefit explained, verbally understanding. Will continue to monitor.
[2020-04-01 07:55] VITALS: BP_SYST 150
[2020-04-01] MEDS: SODIUM PHOSPHATE,MONO-DIBASIC 133 ML ENEMA RC SCH (09:18)
[2020-04-01] MEDS: PANTOPRAZOLE SODIUM 40 MG/VIAL (PROTONIX) IVP SCH ×2 (09:18→21:45)
[2020-04-01] MEDS: POTASSIUM CHLORIDE 20 MEQ TAB.PRT.SR PO SCH ×2 (09:18→21:46)
[2020-04-01] MEDS: LACTOBACILLUS RHAMNOSUS GG 1 CAP CAPSULE PO SCH ×2 (09:18→21:46)
--- NOTE | 2020-04-01 09:37 | NUR ---
AM SCHEDULE MED GIVE, TOLERATED WELL. SAFETY MEASURE MAINTAINED. CALL LIGHT WITHIN REACHED. CONTINUE TO MONITOR.
--- NOTE | 2020-04-01 11:01 | NUR ---
NORCO GIVEN Patient c/o right abdomen pain 12/27. [place] 5/325mg 2 tab PO given as ordered. Patient resting in the bed. No acute distress. Continue on O2 2L/min via NC. Safety measure maintained. Call light within reached. Bed locked in low position, side rails up. Continue to monitor.
[2020-04-01 12:00] VITALS: BP_SYST 144
--- NOTE | 2020-04-01 12:51 | NUR ---
SEEN AND EXAMINED BY GIO FRAGA WITH ORDER RECEIVED. NOTED AND CARRIED OUT.
--- NOTE | 2020-04-01 14:03 | NUR ---
REFUSED INSULIN [id number]. Patient refused 2units of Humulin R insulin. Per patient just ate. Safety measure maintained. Call light within reached. Continue to monitor.
[2020-04-01] MEDS: HYDROmorphone 1 MG INJ. 1 MG/ML AMPUL IVP PRN (14:04)
[2020-04-01] MEDS: LR 1,000 ML IV SCH (14:06)
--- NOTE | 2020-04-01 14:07 | NUR ---
DILAUDID GIVEN Patient c/o right abdominal pain 01/27. Dilaudid 1mg IVP given as ordered. Patient resting in the bed. No acute distress. Continue on O2 2L/min via NC. HOB elevated. IV intact, IVF infusing well. Safety measure maintained. Call light within reached. Bed locked in low position, side rails up. Continue to monitor.
[2020-04-01 16:00] VITALS: BP_SYST 152
--- NOTE | 2020-04-01 16:15 | NUR ---
NORCO GIVEN Patient c/o right abdomen pain 12/27. [place] 5/325mg 2 tab PO given as ordered. Patient resting in the bed. No acute distress. Continue on O2 2L/min via NC. Safety measure maintained. Call light within reached. Bed locked in low position, side rails up. Continue to monitor.
--- NOTE | 2020-04-01 17:20 | NUR ---
SEEN AND EXAMINED BY DR. MARLEY [facility] Reported to Dr. Marley, patient's BS was within normal limit when on TPN. Now off TPN and the last NO=[id number] but patient refused insulin because she stated that she just eat. Dr. Marley stated "the patient no need it, D/C the blood sugar check". Order noted and carried out.
--- NOTE | 2020-04-01 18:45 | NUR ---
CLOSING NOTE Patient resting in the bed. No acute distress. PRN pain med given as needed. Skin warm and dry to touch. IV intact to LFA and RFA, no redness, no swelling, patent. IVF infusing well. Abdomen incision intact with mara, no drainage, no bleeding, no odor. JARRETT drain intact to right abdomen. All needs met. Safety measure maintained. Call light within reached. Bed locked in low position, side rails up, bed alarm on. Will endorse to night nurse.
[2020-04-01] MEDS: HYDROmorphone 2 MG/ML VIAL IVP PRN (19:08)
--- NOTE | 2020-04-01 19:20 | NUR ---
OPENING NOTE PATIENT AWAKE IN BED, AOX4. RESPIRATIONS EVEN AND UNLABORED ON ROOM AIR. PATIENT TOLERATING IV FLUIDS, IV SITE PATENT AND INTACT WITH NO SIGNS OF INFILTRATION NOTED. SURGICAL INCISION NOTED TO MID ABDOMEN, SLIGHT PINK, [address] ASSISTED PATIENT TO BEDSIDE COMMODE. SAFETY PRECAUTIONS IN PLACE, BED LOCKED IN LOW POSITION AND CALL LIGHT IN REACH.
[2020-04-01 20:00] VITALS: BP_SYST 156
--- NOTE | 2020-04-01 21:00 | NUR ---
BREATHING TREATMENT PATIENT COMPLAINS OF SOB UPON EXERTION TO BEDSIDE COMMODE. BREATHING TREATMENT GIVEN BY RT. OXYGEN 2LPM VIA NC GIVEN PATIENT TOLERATING WELL.
[2020-04-01] MEDS: LEVOFLOXACIN 500 MG/D5W 100 ML IV SCH (21:45)
[2020-04-01] MEDS: IPRATROPIUM/ALBUTEROL SULFATE 3 ML AMPUL.NEB (DUONEB) INH PRN (23:16)
--- NOTE | 2020-04-01 23:50 | NUR ---
PHILOMENA GIVEN PATIENT COMPLAINS OF ABDOMINAL PAIN AFTER GETTING OUT OF BED TO THE COMMODE. MEDICATED WITH PAIN MEDICATION ORDERED. PATIENT TOLERATED. WILL CONTINUE TO MONITOR.
[2020-04-02] VITALS: BP_SYST 153
[2020-04-02] MEDS: metroNIDAZOLE 500 mg/NS 100 ML IV SCH ×3 (05:39→22:15)
[2020-04-02] MEDS: LR 1,000 ML IV SCH ×2 (05:39→18:01)
[2020-04-02 06:28] LABS: BASOPHILS % (AUTO) 0.4 % (0.0-2.0); EOSINOPHILS # (AUTO) 0.1 K/uL (0.0-0.4); EOSINOPHILS % (AUTO) 1.2 % (0.0-4.0); HEMATOCRIT 31.5 % (36-48); HEMOGLOBIN 10.7 g/dL (12.0-16.0); LYMPHOCYTES % (AUTO) 8.4 % (20.5-51.5); MEAN CORPUSCULAR HEMOGLOBIN 33 pg (27-31); MEAN CORPUSCULAR HGB CONC 34 % (32-36); MEAN CORPUSCULAR VOLUME 97 fL (79.0-98.0); MONOCYTES # (AUTO) 1.2 K/uL (0.0-1.0); MONOCYTES % (AUTO) 10.4 % (1.7-9.3); NEUTROPHILS # (AUTO) 9.3 K/uL (1.8-7.7); NEUTROPHILS % (AUTO) 79.6 % (40.0-70.0); PLATELET COUNT (AUTO) 301 K/uL (130-430); RED BLOOD CELL COUNT(AUTO) 3.24 MIL/uL (4.2-6.2); WHITE BLOOD COUNT (AUTO) 11.7 K/uL (4.8-10.8)
--- NOTE | 2020-04-02 06:45 | NUR ---
CLOSING NOTE PATIENT AWAKE IN BED, WATCHING TV. PATIENT STATES SHE FEELS BETTER WITH OXYGEN IN PLACE AND CONTINUES TO HAVE SOME SOB UPON EXERTION WITHOUT OXYGEN IN PLACE. PATIENT CONTINUES TO USE INCENTIVE SPIROMETER AND REACHING 1000. JARRETT DRAIN OUTPUT SEROUS SANGUINOUS FLUID <5ML. MILAN REMAIN IN TACT TO ABDOMINAL INCISION. PATIENT STABLE. ALL CARE NEEDS MET. SAFETY MEASURES REMAIN IN PLACE, BED LOCKED IN LOW POSITION WITH CALL LIGHT IN REACH.
[2020-04-02 06:51] LABS: CALCIUM 8.3 mg/dL (8.4-11.0); CREATININE 0.4 mg/dL (0.55-1.30); PHOSPHORUS 3.9 mg/dL (2.7-4.5); POTASSIUM 3.4 mmol/L (3.5-5.1); TOTAL BILIRUBIN 0.3 mg/dL (0.0-1.0)
[2020-04-02 08:00] VITALS: BP_SYST 160
--- NOTE | 2020-04-02 08:00 | NUR ---
NOTE PATIENT AWAKE IN BED, AOX4. RESPIRATIONS EVEN AND UNLABORED ON 2 LITERS NASAL CANNULA SATURATION 97%. ENCOURAGE TO DO IS ABLE TO GO UP 1000ML. PATIENT TOLERATING IV FLUIDS, IV SITE PATENT AND INTACT WITH NO SIGNS OF INFILTRATION NOTED. SURGICAL INCISION NOTED TO MID ABDOMEN, SLIGHT PINK, [address] ASSISTED PATIENT TO BEDSIDE COMMODE. SAFETY PRECAUTIONS IN PLACE, BED LOCKED IN LOW POSITION AND CALL LIGHT IN REACH.
[2020-04-02] MEDS: LACTOBACILLUS RHAMNOSUS GG 1 CAP CAPSULE PO SCH ×2 (09:29→21:02)
[2020-04-02] MEDS: HYDROmorphone 2 MG/ML VIAL IVP PRN (09:29)
[2020-04-02] MEDS: ONDANSETRON HCL 4 MG/2 ML VIAL IVP PRN (09:29)
[2020-04-02] MEDS: POTASSIUM CHLORIDE 20 MEQ TAB.PRT.SR PO SCH ×2 (09:29→21:02)
[2020-04-02] MEDS: PANTOPRAZOLE SODIUM 40 MG/VIAL (PROTONIX) IVP SCH ×2 (09:29→21:02)
[2020-04-02] MEDS ORDERED: SODIUM PHOSPHATE,MONO-DIBASIC 133 ML ENEMA RC PRN (10:15)
[2020-04-02 12:00] VITALS: BP_SYST 169
--- NOTE | 2020-04-02 15:31 | NUR ---
Nutrition F/U RD reviewed pt's current EMR record including diet Hx, physician notes, nursing notes, pertinent labs/meds/procedures, care trends, and care activity. Admission Dx: Acute abd PMH: HTN, thyroid Dz, depression, GERD per physician notes 03/28 Sx: ex lap small bowel resection, appendectomy, lysis of adhesions, abd washout per EMR SARS-CoV-23 Ag (Rapid) Negative 03/28 Current Diet Order/Nutrition Support: Clear liquid x3 days Subjective Info: Pt seen sitting atop bedside commode at time of RD visit. Pt reported that she drank some broth, juice, and Ensure at breakfast, and has not had lunch yet as she has been voiding a lot. Per EMR, pt has absent bowel sounds. Pt denied any BM today, last noted BM was yesterday, 04/01 x2 per EMR. Pt is not yet meeting nutritional needs. Pertinent Medications: fleet enema, zofran, protonix IV Pertinent Labs: Na 136 WNL (improved), BUN 6 H, BG 106 H, POC BG 163 H, TG 108 WNL, ALB 2 L, WBC 11.7 H Skin Integrity Comment: Eber scale: 17; per EMR, surgical incisions to abd Estimated Energy Expenditure (kcals/day) 5834-9269 kcal/day (30-35 kcal/kg CBW for surgical healing) Estimated Protein Required (g/day) 80-101 gm/day (1.2-1.5 gm/kg CBW for surgical healing) Estimated Fluid Required (l/day) 2-2.4 L/day (1 ml/kcal/day for maintenance) Problem/Etiology/Signs/Symptoms Complicated GI function related to compromised abd as evidenced by need for NPO status and PPN support. *ongoing Increased nutritional needs related to metabolic demands as evidenced by estimated nutritional requirements for surgical healing. *ongoing Expected Outcomes/Goals - Monitor provision and tolerance of PPN, labs trending WNL, normal GI function, and skin integrity/wt maintenance Dietitian Recommendations * Recommend continuing clear liquid diet * Consider advance to soft (low fiber/bland) diet if/when medically appropriate Follow Up High Risk: F/U in 2-3 days
--- NOTE | 2020-04-02 15:38 | NUR ---
Dietitian Recommendations * Recommend continuing clear liquid diet * Consider advance to soft (low fiber/bland) diet if/when medically appropriate LP, RD Please refer to Nutrition F/U for details.
[2020-04-02 16:00] VITALS: BP_SYST 163
[2020-04-02] MEDS: HYDROcodone/ACETAMIN 5-325 MG TAB (NORCO/ VICODIN) PO PRN ×2 (16:28→21:15)
[2020-04-02] MEDS ORDERED: NALOXONE HCL 0.4 MG/ML AMP (NARCAN) IVP PRN (17:30)
--- NOTE | 2020-04-02 17:57 | NUR ---
AFTER FLEET ENEMA, PATIENT HAD X3 SMALL BOWEL MOVEMENT YELLOW COLOR. VOIDED MULTIPLE TIMES.PT DENIES HAVING FLATUS.
--- NOTE | 2020-04-02 18:43 | NUR ---
notes: all needs mets. vital sign stable, afebrile. no s/s of distress. ivf infusing well site patent. no other concerned noted.
--- NOTE | 2020-04-02 19:45 | NUR ---
Late Entry Due to Patient Care: Pt was received lying in bed fully awake, alert and oriented x4. No c/o pain or discomfort. Pt is on oxygen at 2L/min per NC and no respiratory distress noted. Oxygen saturation is 98%. Midline abdominal incision with mara in place is open to air and no signs of wound infection noted. JARRETT drain to bulb suction in RLQ abdomen noted with small amount of light pinkish drainage. IVF of LR is infusing well in RAC at 30ml/hr without any signs of infiltration. Pt declined fleet enema at this time. Pt stated she had two small bowel movements today, but she has not been eating much. Pt was instructed to use IS 10x Q 1hr WA and pt verbalized understanding. Pt's IS usage is up to 1000ml. Fall and safety precautions are in place.
[2020-04-02 20:00] VITALS: BP_SYST 162
[2020-04-02] MEDS: LEVOFLOXACIN 500 MG/D5W 100 ML IV SCH (21:00)
[2020-04-02] MEDS: CARVEDILOL 6.25 MG TABLET (COREG) PO SCH (21:03)
--- NOTE | 2020-04-02 21:15 | NUR ---
Crivitz 5/325mg 1 tablet was given po per pt's request for c/o 11/27 abdominal and low back pain. Pt was instructed to call for assistance before getting out of bed if she feels drowsy or dizzy and pt verbalized understanding. Fall and safety precautions are in place.
--- NOTE | 2020-04-02 21:55 | NUR ---
Pt c/o pain at the IV site in RAC. Angiocath was removed intact and pressure dressing applied to the site. IVF was continued in LFA. Fall and safety precautions are in place.
--- NOTE | 2020-04-02 23:45 | NUR ---
Pt is awake and resting quietly in bed. No c/o pain or discomfort. IVF is infusing well in LFA. Fall and safety precautions are in place.
[2020-04-03] VITALS: BP_SYST 145
[2020-04-03 07:55] LABS: HEMATOCRIT 32.2 % (36-48); HEMOGLOBIN 10.8 g/dL (12.0-16.0); MEAN CORPUSCULAR HEMOGLOBIN 33 pg (27-31); MEAN CORPUSCULAR HGB CONC 34 % (32-36); MEAN CORPUSCULAR VOLUME 98 fL (79.0-98.0); PLATELET COUNT (AUTO) 331 K/uL (130-430); RED BLOOD CELL COUNT(AUTO) 3.29 MIL/uL (4.2-6.2); RED CELL DISTRIBUTION WIDTH 14.5 % (9.0-15.0); WHITE BLOOD COUNT (AUTO) 12.4 K/uL (4.8-10.8)
[2020-04-03 08:00] VITALS: BP_SYST 162
--- NOTE | 2020-04-03 08:00 | NUR ---
Opening Notes Patient is awake, alert and oriented x4. No resp distress noted. Breathing is even and unlabored. Patient removed her NC for breakfast, saturating at 94% on room air. Patient is c/o back pain, 7/10, throbbing. Reports the pain is constant, requesting pain medication after breakfast. IV site on left AC, 20 gauge and left FA, 22 gauge intact. Flushing well. LR @ 30 cc/hr, infusing well. Pt denies any cough or abnormal bleeding. BSC and FWW at bedside. Pt is ambulatory with assist. All needs met. Safety and fall precautions in place. Bed in lowest position, locked. Will continue to monitor.
[2020-04-03 08:24] LABS: CALCIUM 8.1 mg/dL (8.4-11.0); CREATININE 0.44 mg/dL (0.55-1.30); POTASSIUM 3.9 mmol/L (3.5-5.1); TOTAL BILIRUBIN 0.3 mg/dL (0.0-1.0)
[2020-04-03 08:41] VITALS: BP_SYST 145
[2020-04-03] MEDS: POTASSIUM CHLORIDE 20 MEQ TAB.PRT.SR PO SCH (08:53)
[2020-04-03] MEDS: CARVEDILOL 6.25 MG TABLET (COREG) PO SCH (08:54)
[2020-04-03] MEDS: LACTOBACILLUS RHAMNOSUS GG 1 CAP CAPSULE PO SCH (08:54)
[2020-04-03] MEDS: PANTOPRAZOLE SODIUM 40 MG/VIAL (PROTONIX) IVP SCH (08:54)
[2020-04-03] MEDS: HYDROcodone/ACETAMIN 5-325 MG TAB (NORCO/ VICODIN) PO PRN ×3 (09:02→14:55)
--- NOTE | 2020-04-03 10:24 | NUR ---
PAGED PAGED ZULEYKA MENDOZA AT [phone] SPOKE WITH EXCHANGE.
[2020-04-03 11:46] LABS: ATYPICAL LYMPHOCYTES % 1 % (0-0); BAND % (MANUAL) 8 % (0-6); LYMPHOCYTES % (MANUAL) 3 % (20-46)
[2020-04-03 11:47] LABS: BASOPHILS % (MANUAL) 0 % (0-2); EOSINOPHILS % (MANUAL) 3 % (0-7); MONOCYTES % (MANUAL) 8 % (0-11)
[2020-04-03 12:00] VITALS: BP_SYST 162
--- NOTE | 2020-04-03 12:00 | NUR ---
Notes/Zofran Patient is c/o stomach and back pain. Reports she feels "nauseated." Administered Zofran IVP, tolerated well. Patient is eating lunch at this time. NO resp distress noted. Breathing is even and unlabored. Pt c/o 8/10 pain level, requesting pain meds for later. Will continue to monitor.
[2020-04-03] MEDS: ONDANSETRON HCL 4 MG/2 ML VIAL IVP PRN (12:01)
[2020-04-03] MEDS: metroNIDAZOLE 500 mg/NS 100 ML IV SCH ×3 (13:23→13:39)
--- NOTE | 2020-04-03 13:50 | NUR ---
Gave report to SELVIN Hagan for continuity of care
--- NOTE | 2020-04-03 13:55 | NUR ---
RECEIVED PATIENT. PATIENT IS LOCX4, PAIN 9/10. PATIENT WAS GIVEN PAIN MED BY PREVIOUS NURSE BUT WILL CONTINUE TO MONITOR FOR PAIN.
[2020-04-03] MEDS ORDERED: lisinopriL 5 MG TABLET PO ONE (14:45)
[2020-04-03] MEDS ORDERED: SIMETHICONE 80 MG TAB.CHEW PO ONE (14:45)
--- NOTE | 2020-04-03 14:46 | NUR ---
PATIENT PAIN LEVEL DECREASED /10. PATIENT WAS BALE TO AMBULATE DOWN HALLWAY WITH WALKER. PATIENT IS SAFELY BACK IN BED.
[2020-04-03] MEDS ORDERED: SIMETHICONE 80 MG TAB.CHEW PO SCH (15:00)
[2020-04-03] MEDS ORDERED: HYDR-4272 PO (15:12)
[2020-04-03] MEDS ORDERED: FLA250 PO (15:15)
[2020-04-03 16:46] VITALS: BP_SYST 149; BP_SYST 152
--- NOTE | 2020-04-03 17:30 | NUR ---
notes as per primary nurse steve dr quigley instructed that pt will be discharge home with mara and zamzam drain. educated pt to make appointment with dr quigley for tuesday.pt verbalized understanding
--- NOTE | 2020-04-03 18:01 | NUR ---
PATIENT WAS EDUCATED ON HOW TO USE SEEMA PELAEZ AT HOME BEFORE D/C. PATIENT DEMONSTRATED UNDERSTANDING AND VERBALIZED BACK.
--- NOTE | 2020-04-03 18:15 | NUR ---
D/C Patient Patient given medication reconciliation form and D/C instructions. Exit Care provided. Patient verbalized understanding. MD discussed with patient the results and treatment provided. Ambulatory with steady gait for discharge to home. Patient in stable condition, ID band removed. IV catheter removed, intact and dressing applied, no active bleeding. Rx of norco,levaquin,flagyl given. Patient educated on pain management. All belongings sent with patient.pt sent home with alice, and daughter in private car.
[2020-04-04] MEDS ORDERED: lisinopriL 5 MG TABLET PO SCH (09:00)
== END 2020-04-03 18:15 | disposition home or self-care (01) | DRG 329 ==
LOC: SED 23:51 → STU 03-28 03:31 → SMU 04-03 11:33
PROVIDERS: ADMIT Internal Medicine; ATTEND Internal Medicine
PROC: 0DTJ0ZZ Resection of Appendix, Open Approach (ICD-10-PCS; 2020-03-28)
PROC: 0DBB0ZZ Excision of Ileum, Open Approach (ICD-10-PCS; principal; 2020-03-28 04:30)
DX: K63.1 Perforation of intestine (nontraumatic) (principal); N17.0 Acute kidney failure with tubular necrosis; E43 Unspecified severe protein-calorie malnutrition; E87.1 Hypo-osmolality and hyponatremia; K56.7 Ileus, unspecified; K59.00 Constipation, unspecified; I10 Essential (primary) hypertension; E07.9 Disorder of thyroid, unspecified; Z20.828 Contact with and (suspected) exposure to other viral communicable diseases; F32.9 Major depressive disorder, single episode, unspecified; K21.9 Gastro-esophageal reflux disease without esophagitis; K29.70 Gastritis, unspecified, without bleeding; E83.39 Other disorders of phosphorus metabolism; E87.6 Hypokalemia; Q43.0 Meckel's diverticulum (displaced) (hypertrophic); Z88.0 Allergy status to penicillin; Z79.899 Other long term (current) drug therapy; Z87.891 Personal history of nicotine dependence
CPT/HCPCS: 36415; 71045; 74018; 80048; 80053; 80061; 81000-TC; 82150-TC; 82962; 83605; 83690-TC; 83735-TC; 84100-TC; 84478-TC; 85007; 85025; 85027; 85610-TC; 86886; 86900; 86901; 87040-TC; 87081; 88304; 88305; 88307; 93005; 94640; 94760; 96361; 96365; 96368; 96375; 97110-GP; 97116-GP; 97530-GP; 99285; C9113; G0378; J0330; J0610; J1100; J1170; J1815; J1885; J1956; J2250; J2270; J2370; J2405; J2704; J2710; J3010; J3475; J3480; J3490; J7030; J7050; J7120; J7131